=== PATIENT | female | born 1960 | race Caucasian/White ===

== ENCOUNTER 2016-03-05 09:55 | Emergency (ER) | payer OTHER ==
[2016-03-05 10:34] LABS: COLOR PALE YELLOW; LEUKOCYTE ESTERASE,URINE NEGATIVE (NEGATIVE); NITRITE,URINE NEGATIVE (NEGATIVE)
--- NOTE | 2016-03-05 10:42 | EDPHY ---
H & P Stated Complaint: Lower R sided flank pain ?UTI Time Seen by Provider: 03/05/16 10:19 HPI/ROS: CHIEF COMPLAINT: Left flank and abdominal pain HISTORY OF PRESENT ILLNESS: This is a generally healthy 55-year-old female who presents with almost 3 days of left upper abdominal and left flank pain. The pain is constant. It is a dull aching sensation. Pain is worsened with fast movements or deep breathing. She does not feel short of breath. Last night she was up most of the night with urinary frequency. She denies hematuria or dysuria. She has had some nausea but no vomiting. She has not had diarrhea. She denies fever. She was evaluated at [facility] and a urine dip showed leukocytes, prompting them to refer her to the emergency department. REVIEW OF SYSTEMS: A ten point review of systems was performed and is negative with the exception of the items mentioned in the HPI. Source: Patient Exam Limitations: No limitations - Personal History LMP (Females 10-55): Post Menopausal Current Tetanus/Diphtheria Vaccine: Yes Current Tetanus Diphtheria and Acellular Pertussis (TDAP): Yes - Medical/Surgical History Hx Asthma: No Hx Chronic Respiratory Disease: No Hx Diabetes: No Hx Cardiac Disease: No Hx Renal Disease: No Hx Cirrhosis: No Hx Alcoholism: No Hx HIV/AIDS: No Hx Splenectomy or Spleen Trauma: No Other PMH: Hashimotos. hysterectomy. high cholesterol - Social History Smoking Status: Never smoked Additional Social History: She does not use tobacco products. - Physical Exam Exam: General Appearance: Alert. Vital signs reviewed. Heart rate 101 at triage. Afebrile. Eyes: Pupils equal and round, no conjunctival injection, no discharge. Anicteric. ENT, Mouth: Mucous membranes are moist, no oropharyngeal erythema or edema. Neck: No lymphadenopathy, supple. Respiratory: Lungs are clear to auscultation; no wheezes, rales, or rhonchi. Cardiovascular: Regular rate and rhythm, not tachycardic at the time of my exam ; no murmur, rub, or gallop. Gastrointestinal: Abdomen is soft with mild tenderness in the left upper quadrant, no guarding, no masses or organomegaly, bowel sounds normal. Skin: Warm and dry, no rashes on exposed skin, normal color. No vesicles or evidence of shingles involving her left abdomen and flank. Back: Nontender to palpation over the thoracolumbar spine. Mild left CVAT. Extremities: No lower extremity edema, no calf tenderness or swelling. Neurological: Alert and oriented. Moving all four extremities easily and equally. Psychiatric: Normal affect. Constitutional: Initial Vital Signs Temperature (C) 36.7 C 03/05/16 10:00 Heart Rate 110 H 03/05/16 10:00 Respiratory Rate 16 03/05/16 10:00 Blood Pressure 98/74 L 03/05/16 10:00 O2 Sat (%) 98 03/05/16 10:00 O2 Delivery Mode Room Air Allergies/Adverse Reactions: Penicillins Allergy (Mild, Verified 04/05/14 15:35) Rash Home Medications: Medication Instructions Recorded Levothyroxine [Synthroid 25 mcg 25 mcg PO DAILY06 12/12/13 (RX)] Cyclobenzaprine [Flexeril] 10 mg PO TID PRN #12 tab 04/05/14 Statin 04/05/14 Medical Decision Making ED Course/Re-evaluation: Healthy 55-year-old with flank and abdominal pain. Emergency department evaluation included CBC, chemistries, urinalysis, and D-dimer. These were all normal. She is low risk for PE and I think that a normal D-dimer is sufficient to eliminate PE from the differential diagnosis. I was concerned about the possibility of pyelonephritis or urinary tract infection but she has a normal urinalysis with no evidence of infection. There is no blood in her urine. Ureterolithiasis is another diagnostic possibility, but less likely without hematuria. She did not want pain medication in the emergency department. We discussed CT scan of the abdomen and pelvis but at this point in time I am not sure that it would be beneficial, as it is not clear what we would be looking for. On reexamination she remains with some mild left flank and upper abdominal pain. Her pain is minimal, but not gone. There are no skin changes suggestive of shingles. I am recommending watching and waiting to see if this process evolves, pointing us in the right direction in terms of diagnosis. If she develops more urinary symptoms I think that she should have another urinalysis performed. She will watch for skin lesions. If she has severe pain she will return for re- evaluation. - Data Points Laboratory Results: Laboratory Results 03/05/16 10:50 03/05/16 10:50 Departure - Departure Disposition: Home, Routine, Self-Care Clinical Impression: Flank pain Abdominal pain Qualifiers: Abdominal location: left upper quadrant Qualifier Code: (R10.12) Left upper quadrant pain Condition: Good Instructions: Abdominal Pain (ED), Flank Pain (ED) Additional Instructions: As we discussed, the cause of your pain has not been discovered. If you continue with pain tomorrow you need to be re-evaluated. I recommend taking ibuprofen 400 mg every 6-8 hours with food. Take it regularly. You can also take Tylenol 650 mg every 4 hours if desired. If you develop new or concerning symptoms such as fever, worsening pain, change in location of the pain, pain with urination, blood in your urine, vomiting, diarrhea--please return immediately for another evaluation. Referrals: Zuleyma Wilhelm PA [Primary Care Provider] - As per Instructions
[2016-03-05 11:02] LABS: % IMMATURE GRANULYOCYTES 0.2 % (0.0-1.1); ABSOLUTE IMMATURE GRANULOCYTES 0.02 10^3/uL (0.00-0.10); ADD DIFF? NO; ADD MORPH? NO; ADD SCAN? NO; ATYPICAL LYMPHOCYTE FLAG 10 (0-99); FRAGMENT RBC FLAG 0 (0-99); HEMATOCRIT 40.8 % (38.0-47.0); HEMOGLOBIN 13.9 g/dL (12.6-16.3); LEFT SHIFT FLG 0 (0-99); LIPEMIA HEMOLYSIS FLAG 90 (0-99); MEAN CELL HEMOGLOBIN 30.8 pg (27.9-34.1); MEAN CELL HEMOGLOBIN CONCENTR. 34.1 g/dL (32.4-36.7); MEAN CELL VOLUME 90.3 fL (81.5-99.8); MEAN PLATELET VOLUME 9.5 fL (8.7-11.7); PLATELET CLUMPS FLAG 0 (0-99); PLATELET COUNT 297 10^3/uL (150-400); RED BLOOD CELL COUNT 4.52 10^6/uL (4.18-5.33); RED CELL DISTRIBUTION WIDTH 12.7 % (11.5-15.2)
[2016-03-05 11:17] LABS: ANION GAP 11 mEq/L (8-16); CALCIUM 9.4 mg/dL (8.5-10.4); CARBON DIOXIDE 25 mEq/l (22-31); CHLORIDE 102 mEq/L (97-110); CREATININE 0.8 mg/dL (0.6-1.0); GLOMERULAR FILTRATION RATE > 60; GLUCOSE 87 mg/dL (70-100); POTASSIUM 4.4 mEq/L (3.5-5.2); SODIUM 138 mEq/L (134-144)
[2016-03-05 12:36] VITALS: BP 99/70; PULSE 100; RESP 14; TEMP 97.9; O2SAT 99
== END 2016-03-05 12:35 | disposition home or self-care (01) ==
DX: R10.12 Left upper quadrant pain (principal)

== ENCOUNTER → 2017-06-19 | Outpatient (CLI) | payer OTHER | LOC: FIMAGING 08:13 | PROVIDERS: ATTEND Physician Assistant | DX: R10.33 Periumbilical pain (principal) ==

== ENCOUNTER → 2017-09-25 | Outpatient (CLI) | payer OTHER ==
[~2017-09-25] MED LIST: IOPAMIDOL (ISOVUE-300) 100 ML BTL ONE
== END ==
LOC: FIMAGING 14:42
PROVIDERS: ATTEND Family Medicine
DX: K86.2 Cyst of pancreas (principal); K59.00 Constipation, unspecified
CPT/HCPCS: Q9967

== ENCOUNTER → 2018-02-06 | Outpatient (CLI) | payer OTHER ==
[~2018-02-06] MED LIST changes: +GADOBUTROL 10 ML VIAL IVP ONE; -IOPAMIDOL (ISOVUE-300) 100 ML BTL ONE
== END ==
LOC: FIMAGING 12:28
PROVIDERS: ATTEND Physician Assistant
DX: K86.2 Cyst of pancreas (principal)
CPT/HCPCS: A9585

== ENCOUNTER → 2018-07-07 | Outpatient (CLI) | payer OTHER | LOC: FIMAGING 11:01 | PROVIDERS: ATTEND Internal Medicine Gastroenterology | DX: K86.2 Cyst of pancreas (principal) ==